=== PATIENT | male | born 1985 | race Caucasian/White ===

== ENCOUNTER 2017-08-10 09:15 | Inpatient (IN) | payer OTHER ==
[2017-08-10 10:56] LABS: ADD MAN DIFF? NO
[2017-08-10 10:58] LABS: WHITE BLOOD COUNT 22.4 10^3/ul (4.8-10.8)
[2017-08-10 10:58] LABS: ABNORMAL IP MESSAGE 1; BASOPHIL # 0.1 10^3/ul (0.0-0.1); BASOPHILS % 0.3 % (0.0-2.0); HEMATOCRIT 49.9 % (42.0-52.0); HEMOGLOBIN 17.1 g/dl (14.0-18.0); LYMPHOCYTES # 2.1 10^3/ul (0.8-2.9); LYMPHOCYTES % 9.2 % (15.0-51.0); MEAN CORPUSCULAR HEMOGLOBIN 27.7 pg (29.0-33.0); MEAN CORPUSCULAR HGB CONC 34.3 g/dl (32.0-37.0); MEAN CORPUSCULAR VOLUME 80.9 fl (82.0-101.0); MONOCYTE # 1.8 10^3/ul (0.3-0.9); MONOCYTES % 8.2 % (0.0-11.0); NEUTROPHIL # 18.3 10^3/ul (1.6-7.5); NEUTROPHILS % 81.8 % (39.0-77.0); PLATELET COUNT 302 10^3/UL (140-415); POSITIVE DIFF @See below; RED BLOOD COUNT 6.17 10^6/ul (4.70-6.10)
[2017-08-10] MEDS: LORAZEPAM 2 MG INJ IV (11:12)
[2017-08-10] MEDS: SOD CHLORIDE 0.9% 1,000 ML IV ×4 (11:12→20:32)
[2017-08-10] MEDS: METHYLPREDNISOLONE 125 MG INJ IV (11:13)
[2017-08-10] MEDS: IPRATROPIUM (NEB) 0.5 MG/2.5 ML AMP INH (11:14)
[2017-08-10] MEDS: ALBUTEROL 0.5% (NEB) 2.5 MG/0.5 ML AMP INH (11:15)
[2017-08-10 11:27] LABS: INR 0.94; PARTIAL THROMBOPLASTIN TIME 20.3 Sec (25.0-35.0); PROTIME 12.7 Sec (11.9-14.9)
[2017-08-10 11:37] LABS: ALANINE AMINOTRANSFERASE 69 IU/L (13-69); ALBUMIN 5.2 g/dl (3.3-4.9); ALBUMIN/GLOBULIN RATIO 1.73; ALKALINE PHOSPHATASE 192 IU/L (42-121); ANION GAP 27 (8-16); ASPARTATE AMINO TRANSFERASE 43 IU/L (15-46); BLOOD UREA NITROGEN 15 mg/dl (7-20); CALCIUM 10.4 mg/dl (8.4-10.2); CARBON DIOXIDE 21 mmol/L (21-31); CHLORIDE 107 mmol/L (97-110); CREATININE 0.79 mg/dl (0.61-1.24); GLUCOSE 240 mg/dl (70-220); POTASSIUM 3.7 mmol/L (3.5-5.1); SODIUM 151 mmol/L (135-144); TOTAL PROTEIN 8.2 g/dl (6.1-8.1)
[2017-08-10 11:41] LABS: LACTIC ACID 8.2 mmol/L (0.5-2.0)
[2017-08-10] MEDS: LEVETIRACETAM 1000 MG (PMX) 100 ML IVPB ×2 (11:54→21:35)
[2017-08-10 12:03] LABS: TROPONIN-I 0.049 ng/ml (0.00-0.12)
[2017-08-10] MEDS: CEFEPIME 2GM/50 ML (PMX) 50 ML IVPB (12:46)
[2017-08-10] MEDS ORDERED: ACETAMINOPHEN 325 MG TAB PO (13:00)
[2017-08-10] MEDS ORDERED: ONDANSETRON 4 MG INJ IV ×2 (13:00→13:30)
[2017-08-10] MEDS: LINEZOLID 600 MG/D5W (PMX) 300 ML IVPB (13:06)
[2017-08-10] MEDS ORDERED: NACL 0.9% 3 ML SYG IV (13:30)
[2017-08-10] MEDS ORDERED: LORAZEPAM 2 MG INJ IV (13:30)
[2017-08-10] MEDS ORDERED: ACETAMINOPHEN 650 MG SUPP PR (13:30)
[2017-08-10] MEDS ORDERED: DOCUSATE SODIUM 100 MG CAP PO (13:30)
[2017-08-10] MEDS ORDERED: MAGNESIUM HYDROXIDE 30ML CUP PO (13:30)
[2017-08-10] MEDS ORDERED: BISACODYL 10 MG SUPP PR (13:30)
[2017-08-10 13:35] LABS: LACTIC ACID 4.5 mmol/L (0.5-2.0)
[2017-08-10 14:52] LABS: ADD UMIC NO; UR ASCORBIC ACID NEGATIVE (NEGATIVE); UR BILIRUBIN (Dip) NEGATIVE (NEGATIVE); UR BLOOD (Dip) NEGATIVE (NEGATIVE); UR CLARITY CLEAR (CLEAR); UR COLOR STRAW (YELLOW); UR GLUCOSE (Dip) 1+ mg/dL (NEGATIVE); UR KETONES (Dip) NEGATIVE (NEGATIVE); UR LEUKOCYTE ESTERASE (Dip) NEGATIVE Leu/ul (NEGATIVE); UR NITRITE (Dip) NEGATIVE (NEGATIVE); UR SPECIFIC GRAVITY (Dip) 1.011 (1.003-1.030); UR TOTAL PROTEIN (Dip) NEGATIVE (NEGATIVE); UR UROBILINOGEN (Dip) NEGATIVE (NEGATIVE)
[2017-08-10] MEDS: SOD CHLORIDE 0.9% 2,110 ML IV (15:00)
[2017-08-10 16:00] LABS: LACTIC ACID 4.3 mmol/L (0.5-2.0)
[2017-08-10] MEDS: AZTREONAM 2 GM in SOD CHLORIDE 0.9% 100 ML IVPB ×2 (16:25→20:31)
[2017-08-10] MEDS: LANSOPRAZOLE 30 MG CAP GTB (20:30)
[2017-08-10] MEDS: ACETAMINOPHEN 325 MG TAB PO (21:27)
[2017-08-10] MEDS: OXCARBAZEPINE SUSP 60 MG/ML (PO SYG) PO (21:35)
[2017-08-11] MEDS: SOD CHLORIDE 0.9% 1,000 ML IV ×3 (04:48→20:54)
[2017-08-11] MEDS: AZTREONAM 2 GM in SOD CHLORIDE 0.9% 100 ML IVPB ×2 (04:48→14:06)
[2017-08-11] MEDS: LEVETIRACETAM 1000 MG (PMX) 100 ML IVPB (08:34)
[2017-08-11] MEDS: OXCARBAZEPINE SUSP 60 MG/ML (PO SYG) PO ×2 (08:36→20:42)
[2017-08-11] MEDS: LANSOPRAZOLE 30 MG CAP GTB ×2 (08:37→20:42)
[2017-08-11 08:48] LABS: ADD MAN DIFF? NO
[2017-08-11 08:54] LABS: BASOPHIL # 0.1 10^3/ul (0.0-0.1); BASOPHILS % 0.5 % (0.0-2.0); EOSINOPHILS % 0.3 % (0.0-7.0); HEMATOCRIT 35.8 % (42.0-52.0); HEMOGLOBIN 12.2 g/dl (14.0-18.0); LYMPHOCYTES # 2.9 10^3/ul (0.8-2.9); LYMPHOCYTES % 28.3 % (15.0-51.0); MEAN CORPUSCULAR HEMOGLOBIN 27.6 pg (29.0-33.0); MEAN CORPUSCULAR HGB CONC 34.1 g/dl (32.0-37.0); MEAN PLATELET VOLUME 11.1 fl (7.4-10.4); MONOCYTE # 1.2 10^3/ul (0.3-0.9); MONOCYTES % 11.4 % (0.0-11.0); NEUTROPHIL # 6.1 10^3/ul (1.6-7.5); NEUTROPHILS % 59.3 % (39.0-77.0); PLATELET COUNT 196 10^3/UL (140-415); RED BLOOD COUNT 4.42 10^6/ul (4.70-6.10); RED CELL DISTRIBUTION WIDTH 14.7 % (11.5-14.5)
[2017-08-11 08:54] LABS: WHITE BLOOD COUNT 10.2 10^3/ul (4.8-10.8)
[2017-08-11 09:11] LABS: ALANINE AMINOTRANSFERASE 98 IU/L (13-69); ALBUMIN 3.2 g/dl (3.3-4.9); ALBUMIN/GLOBULIN RATIO 1.18; ALKALINE PHOSPHATASE 98 IU/L (42-121); ANION GAP 15 (8-16); ASPARTATE AMINO TRANSFERASE 56 IU/L (15-46); BILIRUBIN,INDIRECT 0.1 mg/dl (0-1.1); BILIRUBIN,TOTAL 0.1 mg/dl (0.2-1.3); BLOOD UREA NITROGEN 10 mg/dl (7-20); CALCIUM 8.7 mg/dl (8.4-10.2); CARBON DIOXIDE 24 mmol/L (21-31); CHLORIDE 111 mmol/L (97-110); CHOL/HDL RATIO 2.8 RATIO; CHOLESTEROL 107 mg/dl (100-200); CREATININE 0.51 mg/dl (0.61-1.24); GLUCOSE 115 mg/dl (70-220); HDL CHOLESTEROL 37 mg/dl (28-63); LDL CHOLESTEROL,CALCULATED 55 mg/dl; MAGNESIUM 2.1 mg/dl (1.7-2.5); PHOSPHORUS 2.5 mg/dl (2.5-4.9); POTASSIUM 3.8 mmol/L (3.5-5.1); SODIUM 146 mmol/L (135-144); TOTAL PROTEIN 5.9 g/dl (6.1-8.1); TRIGLYCERIDES 77 mg/dl (0-149)
[2017-08-11 09:26] LABS: FREE THYROXINE INDEX (Calc) 1.73 ug/ml (0.65-3.89); T4 (THYROXINE) 5.3 ug/dl (5.5-11.0)
[2017-08-11 09:36] LABS: T3 UPTAKE 32.6 % (23.5-40.5)
[2017-08-11 09:40] LABS: THYROID STIMULATING HORMONE 0.451 MIU/L (0.465-4.680)
[2017-08-11 10:31] LABS: HEMOGLOBIN A1C 5.5 % (0-5.9)
[2017-08-11] MEDS: ACETAMINOPHEN 325 MG TAB PO (11:32)
[2017-08-11] MEDS: LEVETIRACETAM 1500 MG (PMX) 100 ML IVPB (20:42)
[2017-08-12] MEDS: SOD CHLORIDE 0.9% 1,000 ML IV ×2 (05:21→09:09)
[2017-08-12 07:28] LABS: ADD MAN DIFF? NO
[2017-08-12 07:31] LABS: BASOPHILS % 0.5 % (0.0-2.0); EOSINOPHILS # 0.1 10^3/ul (0.0-0.5); EOSINOPHILS % 1.7 % (0.0-7.0); HEMOGLOBIN 15.6 g/dl (14.0-18.0); LYMPHOCYTES # 3.4 10^3/ul (0.8-2.9); LYMPHOCYTES % 44.3 % (15.0-51.0); MEAN CORPUSCULAR HEMOGLOBIN 27.1 pg (29.0-33.0); MEAN CORPUSCULAR HGB CONC 33.2 g/dl (32.0-37.0); MEAN CORPUSCULAR VOLUME 81.7 fl (82.0-101.0); MONOCYTE # 0.8 10^3/ul (0.3-0.9); MONOCYTES % 10.9 % (0.0-11.0); NEUTROPHIL # 3.3 10^3/ul (1.6-7.5); NEUTROPHILS % 42.3 % (39.0-77.0); PLATELET COUNT 211 10^3/UL (140-415); RED BLOOD COUNT 5.75 10^6/ul (4.70-6.10); RED CELL DISTRIBUTION WIDTH 14.2 % (11.5-14.5)
[2017-08-12 07:31] LABS: WHITE BLOOD COUNT 7.7 10^3/ul (4.8-10.8)
[2017-08-12 07:57] LABS: ANION GAP 18 (8-16); BLOOD UREA NITROGEN 8 mg/dl (7-20); CALCIUM 9.7 mg/dl (8.4-10.2); CARBON DIOXIDE 29 mmol/L (21-31); CHLORIDE 107 mmol/L (97-110); CREATININE 0.49 mg/dl (0.61-1.24); GLUCOSE 88 mg/dl (70-220); POTASSIUM 3.9 mmol/L (3.5-5.1); SODIUM 150 mmol/L (135-144)
[2017-08-12] MEDS: OXCARBAZEPINE SUSP 60 MG/ML (PO SYG) PO ×2 (09:09→21:19)
[2017-08-12] MEDS: LANSOPRAZOLE 30 MG CAP GTB ×2 (09:10→20:48)
[2017-08-12] MEDS: LEVETIRACETAM 1500 MG (PMX) 100 ML IVPB ×2 (09:14→20:48)
[2017-08-12] MEDS: SOD CHLORIDE 0.45% IV (12:13)
[2017-08-12] MEDS: POTASSIUM CHLORIDE IV (12:13)
[2017-08-13] MEDS: SOD CHLORIDE 0.45% IV ×2 (02:47→14:10)
[2017-08-13] MEDS: POTASSIUM CHLORIDE IV ×2 (02:47→14:10)
[2017-08-13 08:17] LABS: ADD MAN DIFF? NO
[2017-08-13 08:25] LABS: BASOPHILS % 0.5 % (0.0-2.0); EOSINOPHILS # 0.2 10^3/ul (0.0-0.5); EOSINOPHILS % 4.3 % (0.0-7.0); HEMATOCRIT 45.5 % (42.0-52.0); HEMOGLOBIN 15.6 g/dl (14.0-18.0); LYMPHOCYTES # 2.2 10^3/ul (0.8-2.9); LYMPHOCYTES % 38.8 % (15.0-51.0); MEAN CORPUSCULAR HGB CONC 34.3 g/dl (32.0-37.0); MEAN CORPUSCULAR VOLUME 81.7 fl (82.0-101.0); MONOCYTE # 0.5 10^3/ul (0.3-0.9); NEUTROPHIL # 2.7 10^3/ul (1.6-7.5); NEUTROPHILS % 47.4 % (39.0-77.0); PLATELET COUNT 207 10^3/UL (140-415); RED BLOOD COUNT 5.57 10^6/ul (4.70-6.10); RED CELL DISTRIBUTION WIDTH 14.1 % (11.5-14.5)
[2017-08-13 08:25] LABS: WHITE BLOOD COUNT 5.6 10^3/ul (4.8-10.8)
[2017-08-13 08:40] LABS: ANION GAP 18 (8-16); BLOOD UREA NITROGEN 9 mg/dl (7-20); CALCIUM 9.9 mg/dl (8.4-10.2); CARBON DIOXIDE 28 mmol/L (21-31); CHLORIDE 107 mmol/L (97-110); CREATININE 0.52 mg/dl (0.61-1.24); GLUCOSE 104 mg/dl (70-220); POTASSIUM 3.8 mmol/L (3.5-5.1); SODIUM 149 mmol/L (135-144)
[2017-08-13] MEDS: LEVETIRACETAM 1500 MG (PMX) 100 ML IVPB ×2 (09:10→20:41)
[2017-08-13] MEDS: OXCARBAZEPINE SUSP 60 MG/ML (PO SYG) PO ×2 (09:11→23:38)
[2017-08-13] MEDS: LANSOPRAZOLE 30 MG CAP GTB ×2 (09:11→20:42)
[2017-08-14] MEDS: POTASSIUM CHLORIDE IV (04:39)
[2017-08-14] MEDS: SOD CHLORIDE 0.45% IV (04:39)
[2017-08-14 07:58] LABS: ADD MAN DIFF? NO
[2017-08-14 08:04] LABS: BASOPHILS % 0.7 % (0.0-2.0); EOSINOPHILS # 0.3 10^3/ul (0.0-0.5); EOSINOPHILS % 4.4 % (0.0-7.0); HEMATOCRIT 47.1 % (42.0-52.0); HEMOGLOBIN 15.9 g/dl (14.0-18.0); LYMPHOCYTES # 2.8 10^3/ul (0.8-2.9); LYMPHOCYTES % 46.1 % (15.0-51.0); MEAN CORPUSCULAR HEMOGLOBIN 27.6 pg (29.0-33.0); MEAN CORPUSCULAR HGB CONC 33.8 g/dl (32.0-37.0); MEAN CORPUSCULAR VOLUME 81.6 fl (82.0-101.0); MEAN PLATELET VOLUME 12.7 fl (7.4-10.4); MONOCYTE # 0.5 10^3/ul (0.3-0.9); NEUTROPHIL # 2.4 10^3/ul (1.6-7.5); NEUTROPHILS % 40.6 % (39.0-77.0); POSITIVE DIFF @See below; RED BLOOD COUNT 5.77 10^6/ul (4.70-6.10); RED CELL DISTRIBUTION WIDTH 13.9 % (11.5-14.5)
[2017-08-14 08:10] LABS: PLATELET COUNT 155 10^3/UL (140-415)
[2017-08-14 08:27] LABS: ANION GAP 18 (8-16); BLOOD UREA NITROGEN 9 mg/dl (7-20); CALCIUM 9.9 mg/dl (8.4-10.2); CARBON DIOXIDE 25 mmol/L (21-31); CHLORIDE 108 mmol/L (97-110); CREATININE 0.47 mg/dl (0.61-1.24); GLUCOSE 116 mg/dl (70-220); POTASSIUM 3.8 mmol/L (3.5-5.1); SODIUM 147 mmol/L (135-144)
[2017-08-14] MEDS: LEVETIRACETAM 1500 MG (PMX) 100 ML IVPB (09:15)
[2017-08-14] MEDS: OXCARBAZEPINE SUSP 60 MG/ML (PO SYG) PO (09:16)
[2017-08-14] MEDS: LANSOPRAZOLE 30 MG CAP GTB (09:16)
== END 2017-08-14 17:10 | disposition home or self-care (01) | DRG 871 ==
LOC: E/R 09:15 → MS4 12:42
PROVIDERS: Internal Medicine
DX: A41.9 Sepsis, unspecified organism (principal); G93.49 Other encephalopathy; E87.2 Acidosis; G40.919 Epilepsy, unspecified, intractable, without status epilepticus; R13.10 Dysphagia, unspecified; G80.0 Spastic quadriplegic cerebral palsy; E87.0 Hyperosmolality and hypernatremia; Z93.1 Gastrostomy status; Z98.2 Presence of cerebrospinal fluid drainage device
CPT/HCPCS: 70450; 71045; 80048; 80053; 80061; 81003; 82962; 83036; 83605; 83735; 84100; 84436; 84443; 84479; 84484; 85025; 85610; 85730; 87040; 87086; 87400; 93005; 94644; 96374; 96375; 99291-25

== ENCOUNTER 2017-11-17 11:20 | Emergency (ER) | payer OTHER ==
[2017-11-17 14:27] LABS: ADD UMIC YES; UR AMORPHOUS CRYSTAL FEW /HPF (NONE SEEN); UR ASCORBIC ACID 40 mg/dL (NEGATIVE); UR BACTERIA FEW /HPF (NONE SEEN); UR BILIRUBIN (Dip) NEGATIVE (NEGATIVE); UR BLOOD (Dip) NEGATIVE (NEGATIVE); UR CLARITY CLOUDY (CLEAR); UR COLOR YELLOW (YELLOW); UR GLUCOSE (Dip) NEGATIVE (NEGATIVE); UR KETONES (Dip) NEGATIVE (NEGATIVE); UR LEUKOCYTE ESTERASE (Dip) NEGATIVE Leu/ul (NEGATIVE); UR NITRITE (Dip) NEGATIVE (NEGATIVE); UR RBC 1 /HPF (0-5); UR SPECIFIC GRAVITY (Dip) 1.017 (1.003-1.030); UR TOTAL PROTEIN (Dip) NEGATIVE (NEGATIVE); UR UROBILINOGEN (Dip) NEGATIVE (NEGATIVE); UR WBC 2 /HPF (0-5)
== END 2017-11-17 15:45 | disposition home or self-care (01) ==
LOC: E/R 11:20
DX: J40 Bronchitis, not specified as acute or chronic (principal); R40.2122 Coma scale, eyes open, to pain, at arrival to emergency department; R40.2212 Coma scale, best verbal response, none, at arrival to emergency department; R40.2352 Coma scale, best motor response, localizes pain, at arrival to emergency department
CPT/HCPCS: 71045; 81001; 99284-25

== ENCOUNTER 2018-07-30 07:45 | Day surgery (SDC) | payer OTHER | END 2018-07-30 14:42 | disposition home or self-care (01) | LOC: GIL 07:45 | DX: K94.23 Gastrostomy malfunction (principal); Y84.8 Other medical procedures as the cause of abnormal reaction of the patient, or of later complication, without mention of misadventure at the time of the procedure; Y82.8 Other medical devices associated with adverse incidents | CPT/HCPCS: 43762 ==

== ENCOUNTER 2018-09-27 16:44 | Emergency (ER) | payer OTHER | END 2018-09-27 21:25 | disposition home or self-care (01) | LOC: E/R 16:44 | DX: Z43.1 Encounter for attention to gastrostomy (principal) | CPT/HCPCS: 49440; 74018; 99284-25 ==

== ENCOUNTER 2019-02-20 15:16 | Inpatient (IN) | payer OTHER ==
[2019-02-20] MEDS: SODIUM CHLORIDE 0.9% 1L BAG IV* (15:37)
[2019-02-20] MEDS: LEVETIRACETAM 500 MG (PMX) 100 ML IVPB (15:45)
[2019-02-20] MEDS ORDERED: LORAZEPAM 2 MG INJ (15:46)
[2019-02-20] MEDS: IBUPROFEN 600 MG TAB PO (15:49)
[2019-02-20] MEDS: LORAZEPAM 2 MG INJ IV ×2 (15:53→19:24)
[2019-02-20 16:01] LABS: WHITE BLOOD COUNT 16.6 10^3/ul (4.8-10.8)
[2019-02-20 16:01] LABS: ABNORMAL IP MESSAGE 1; HEMATOCRIT 49.1 % (42.0-52.0); HEMOGLOBIN 16.7 g/dl (14.0-18.0); MEAN CORPUSCULAR HEMOGLOBIN 29.7 pg (29.0-33.0); MEAN CORPUSCULAR VOLUME 87.4 fl (82.0-101.0); MEAN PLATELET VOLUME 10.4 fl (7.4-10.4); PLATELET COUNT 312 10^3/UL (140-415); POSITIVE DIFF @See below; RED BLOOD COUNT 5.62 10^6/ul (4.70-6.10); RED CELL DISTRIBUTION WIDTH 12.3 % (11.5-14.5)
[2019-02-20] MEDS: CEFTRIAXONE 1 GM/50 ML (PMX) 50 ML IVPB (16:01)
[2019-02-20 16:05] LABS: ADD MAN DIFF? YES
[2019-02-20 16:19] LABS: ALANINE AMINOTRANSFERASE 80 IU/L (13-69); ALBUMIN 5.3 g/dl (3.3-4.9); ALBUMIN/GLOBULIN RATIO 1.35; ALKALINE PHOSPHATASE 170 IU/L (42-121); ANION GAP 18 (5-13); ASPARTATE AMINO TRANSFERASE 82 IU/L (15-46); BILIRUBIN,INDIRECT 0.2 mg/dl (0-1.1); BILIRUBIN,TOTAL 0.2 mg/dl (0.2-1.3); BLOOD UREA NITROGEN 13 mg/dl (7-20); CALCIUM 10.6 mg/dl (8.4-10.2); CARBON DIOXIDE 25 mmol/L (21-31); CHLORIDE 100 mmol/L (97-110); CREATININE 0.66 mg/dl (0.61-1.24); Estimated GFR > 60 mL/min (>60); GLUCOSE 142 mg/dl (70-220); LIPASE 76 U/L (23-300); POTASSIUM 3.9 mmol/L (3.5-5.1); SODIUM 143 mmol/L (135-144); TOTAL PROTEIN 9.2 g/dl (6.1-8.1)
[2019-02-20 16:21] LABS: INR 0.99; PROTIME 13.2 Sec (11.9-14.9)
[2019-02-20 16:30] LABS: TROPONIN-I 0.026 ng/ml (0.000-0.120)
[2019-02-20] MEDS: AZITHROMYCIN 500MG/NS (PMX) 250 ML IVPB (16:31)
[2019-02-20] MEDS ORDERED: ALBUTEROL 0.5% (NEB) 2.5 MG/0.5 ML AMP INH (16:39)
[2019-02-20 16:42] LABS: ANISOCYTOSIS 1+ (0-0); BAND NEUTROPHILS #M 0.8 10^3/ul (0.0-0.6); BAND NEUTROPHILS % (M) 5 % (0-4); LYMPHOCYTES #M 0.3 10^3/ul (0.8-2.9); LYMPHOCYTES % (M) 2 % (15-51); MICROCYTOSIS 1+ (0-0); MONOCYTE #M 0.4 10^3/ul (0.3-0.9); MONOCYTES % (M) 3 % (0-11); MYELOCYTES #M 0.1 10^3/ul (0.0-0.0); MYELOCYTES % (M) 1 % (0-0); PLATELET ESTIMATE NORMAL; SEG NEUT #M 14.9 10^3/ul (1.6-7.5); SEGMENTED NEUTROPHILS (M) % 89 % (39-77)
[2019-02-20 16:49] LABS: ADD UMIC NO; UR ASCORBIC ACID NEGATIVE (NEGATIVE); UR BILIRUBIN (Dip) NEGATIVE (NEGATIVE); UR BLOOD (Dip) NEGATIVE (NEGATIVE); UR CLARITY CLEAR (CLEAR); UR COLOR STRAW (YELLOW); UR GLUCOSE (Dip) NEGATIVE (NEGATIVE); UR KETONES (Dip) NEGATIVE (NEGATIVE); UR LEUKOCYTE ESTERASE (Dip) NEGATIVE Leu/ul (NEGATIVE); UR NITRITE (Dip) NEGATIVE (NEGATIVE); UR SPECIFIC GRAVITY (Dip) 1.008 (1.003-1.030); UR TOTAL PROTEIN (Dip) NEGATIVE (NEGATIVE); UR UROBILINOGEN (Dip) NEGATIVE (NEGATIVE)
[2019-02-20] MEDS: DIPHENHYDRAMINE 50 MG INJ IV (17:06)
[2019-02-20] MEDS: IPRATROPIUM (NEB) 0.5 MG/2.5 ML AMP HHN (17:17)
[2019-02-20] MEDS: LEVALBUTEROL (NEB) 1.25 MG/0.5 ML AMP HHN (17:17)
[2019-02-20] MEDS ORDERED: ONDANSETRON 4 MG INJ IV (17:30)
[2019-02-20] MEDS ORDERED: NACL 0.9% 3 ML SYG IV (17:30)
[2019-02-20] MEDS: LEVOFLOXACIN 500MG/D5W (PMX) 100 ML IVPB (17:42)
[2019-02-20] MEDS: SOD CHLORIDE 0.9% 1,000 ML IV (17:43)
[2019-02-20] MEDS ORDERED: LEVALBUTEROL (NEB) 0.63 MG/3 ML AMP HHN (18:30)
[2019-02-20] MEDS: ACETAMINOPHEN 650 MG SUPP PR ×2 (19:27→21:39)
[2019-02-20] MEDS ORDERED: IBUPROFEN LIQUID (PED) 20 MG/ML CUP PO (20:35)
[2019-02-20] MEDS: IBUPROFEN 200 MG TAB PO (21:28)
[2019-02-20 21:57] LABS: LACTIC ACID 2.5 mmol/L (0.5-2.0)
[2019-02-20] MEDS: LEVETIRACETAM (100 MG/ML) 5ML CUP GTB (22:48)
[2019-02-20] MEDS: OXCARBAZEPINE 300 MG TAB GTB (22:48)
[2019-02-20] MEDS: AZTREONAM 2 GM in SOD CHLORIDE 0.9% 100 ML IVPB (22:49)
[2019-02-20] MEDS: RANITIDINE (15 MG/ML) 10ML CUP NGT (23:33)
[2019-02-21] MEDS: ACETAMINOPHEN 650MG/20.3ML CUP GTB (02:46)
[2019-02-21] MEDS: SOD CHLORIDE 0.9% 1,000 ML IV ×5 (04:28→23:47)
[2019-02-21] MEDS: AZTREONAM 2 GM in SOD CHLORIDE 0.9% 100 ML IVPB ×3 (05:41→22:23)
[2019-02-21 06:08] LABS: ADD MAN DIFF? NO
[2019-02-21 06:12] LABS: WHITE BLOOD COUNT 8.7 10^3/ul (4.8-10.8)
[2019-02-21 06:12] LABS: BASOPHILS % 0.3 % (0.0-2.0); HEMATOCRIT 34.9 % (42.0-52.0); HEMOGLOBIN 11.9 g/dl (14.0-18.0); LYMPHOCYTES # 1.9 10^3/ul (0.8-2.9); LYMPHOCYTES % 21.2 % (15.0-51.0); MEAN CORPUSCULAR HEMOGLOBIN 29.7 pg (29.0-33.0); MEAN CORPUSCULAR HGB CONC 34.1 g/dl (32.0-37.0); MEAN PLATELET VOLUME 10.1 fl (7.4-10.4); MONOCYTE # 1.4 10^3/ul (0.3-0.9); NEUTROPHIL # 5.4 10^3/ul (1.6-7.5); NEUTROPHILS % 62.3 % (39.0-77.0); PLATELET COUNT 208 10^3/UL (140-415); RED BLOOD COUNT 4.01 10^6/ul (4.70-6.10); RED CELL DISTRIBUTION WIDTH 12.5 % (11.5-14.5)
[2019-02-21 06:41] LABS: ALANINE AMINOTRANSFERASE 74 IU/L (13-69); ALBUMIN 3.5 g/dl (3.3-4.9); ALBUMIN/GLOBULIN RATIO 1.29; ALKALINE PHOSPHATASE 101 IU/L (42-121); ANION GAP 7 (5-13); ASPARTATE AMINO TRANSFERASE 56 IU/L (15-46); BILIRUBIN,INDIRECT 0.5 mg/dl (0-1.1); BILIRUBIN,TOTAL 0.5 mg/dl (0.2-1.3); BLOOD UREA NITROGEN 7 mg/dl (7-20); CALCIUM 8.2 mg/dl (8.4-10.2); CARBON DIOXIDE 22 mmol/L (21-31); CHLORIDE 110 mmol/L (97-110); Estimated GFR > 60 mL/min (>60); GLUCOSE 121 mg/dl (70-220); POTASSIUM 3.3 mmol/L (3.5-5.1); SODIUM 139 mmol/L (135-144); TOTAL PROTEIN 6.2 g/dl (6.1-8.1)
[2019-02-21] MEDS: IBUPROFEN 600 MG TAB GTB (07:00)
[2019-02-21] MEDS: RANITIDINE (15 MG/ML) 10ML CUP NGT ×2 (09:01→20:03)
[2019-02-21] MEDS: LEVETIRACETAM (100 MG/ML) 5ML CUP GTB ×2 (09:01→20:03)
[2019-02-21] MEDS: OXCARBAZEPINE 300 MG TAB GTB ×2 (09:01→20:03)
[2019-02-21] MEDS: ENOXAPARIN 40 MG/0.4 ML SYG SC (10:00)
[2019-02-21] MEDS ORDERED: POTASSIUM CHLORIDE (1.33 MEQ/ML PO SYG) PEG (10:30)
[2019-02-21] MEDS ORDERED: POTASSIUM CHLORIDE 20 MEQ POWDER FOR ORAL SOLN GTB (11:00)
[2019-02-21] MEDS: POTASSIUM CHLORIDE 20 MEQ POWDER FOR ORAL SOLN PEG (12:12)
[2019-02-21] MEDS: LEVOFLOXACIN 500MG/D5W (PMX) 100 ML IVPB (17:09)
[2019-02-21] MEDS: LORAZEPAM 2 MG INJ IV (19:02)
[2019-02-22] MEDS: AZTREONAM 2 GM in SOD CHLORIDE 0.9% 100 ML IVPB ×3 (06:15→21:45)
[2019-02-22 08:28] LABS: ADD MAN DIFF? NO
[2019-02-22 08:45] LABS: BASOPHIL # 0.1 10^3/ul (0.0-0.1); BASOPHILS % 0.8 % (0.0-2.0); EOSINOPHILS % 0.5 % (0.0-7.0); HEMOGLOBIN 13.5 g/dl (14.0-18.0); LYMPHOCYTES # 3.3 10^3/ul (0.8-2.9); LYMPHOCYTES % 44.7 % (15.0-51.0); MEAN CORPUSCULAR HEMOGLOBIN 29.7 pg (29.0-33.0); MEAN CORPUSCULAR HGB CONC 33.8 g/dl (32.0-37.0); MEAN CORPUSCULAR VOLUME 88.1 fl (82.0-101.0); MEAN PLATELET VOLUME 11.2 fl (7.4-10.4); MONOCYTE # 0.9 10^3/ul (0.3-0.9); MONOCYTES % 12.2 % (0.0-11.0); NEUTROPHIL # 3.1 10^3/ul (1.6-7.5); NEUTROPHILS % 41.7 % (39.0-77.0); PLATELET COUNT 193 10^3/UL (140-415); RED BLOOD COUNT 4.54 10^6/ul (4.70-6.10); RED CELL DISTRIBUTION WIDTH 12.7 % (11.5-14.5)
[2019-02-22 08:45] LABS: WHITE BLOOD COUNT 7.4 10^3/ul (4.8-10.8)
[2019-02-22 09:04] LABS: ANION GAP 11 (5-13); BLOOD UREA NITROGEN 6 mg/dl (7-20); CALCIUM 9.7 mg/dl (8.4-10.2); CARBON DIOXIDE 29 mmol/L (21-31); CHLORIDE 103 mmol/L (97-110); CREATININE 0.43 mg/dl (0.61-1.24); Estimated GFR > 60 mL/min (>60); GLUCOSE 106 mg/dl (70-220); POTASSIUM 3.5 mmol/L (3.5-5.1); SODIUM 143 mmol/L (135-144)
[2019-02-22] MEDS: RANITIDINE (15 MG/ML) 10ML CUP NGT ×2 (09:16→20:16)
[2019-02-22] MEDS: LEVETIRACETAM (100 MG/ML) 5ML CUP GTB ×2 (09:16→20:16)
[2019-02-22] MEDS: OXCARBAZEPINE 300 MG TAB GTB ×2 (09:16→20:16)
[2019-02-22] MEDS: ENOXAPARIN 40 MG/0.4 ML SYG SC (09:54)
[2019-02-22] MEDS: SOD CHLORIDE 0.9% 1,000 ML IV ×2 (10:03→21:45)
[2019-02-22] MEDS: LEVOFLOXACIN 500MG/D5W (PMX) 100 ML IVPB (16:35)
[2019-02-23] MEDS: AZTREONAM 2 GM in SOD CHLORIDE 0.9% 100 ML IVPB (06:07)
[2019-02-23] MEDS: SOD CHLORIDE 0.9% 1,000 ML IV (06:09)
[2019-02-23 06:50] LABS: ADD MAN DIFF? NO
[2019-02-23 06:56] LABS: WHITE BLOOD COUNT 6.7 10^3/ul (4.8-10.8)
[2019-02-23 06:56] LABS: BASOPHILS % 0.6 % (0.0-2.0); EOSINOPHILS # 0.1 10^3/ul (0.0-0.5); EOSINOPHILS % 0.8 % (0.0-7.0); HEMATOCRIT 37.5 % (42.0-52.0); LYMPHOCYTES # 2.3 10^3/ul (0.8-2.9); LYMPHOCYTES % 34.1 % (15.0-51.0); MEAN CORPUSCULAR HEMOGLOBIN 29.9 pg (29.0-33.0); MEAN CORPUSCULAR HGB CONC 34.7 g/dl (32.0-37.0); MEAN CORPUSCULAR VOLUME 86.2 fl (82.0-101.0); MEAN PLATELET VOLUME 10.8 fl (7.4-10.4); MONOCYTE # 0.7 10^3/ul (0.3-0.9); MONOCYTES % 10.1 % (0.0-11.0); NEUTROPHIL # 3.6 10^3/ul (1.6-7.5); NEUTROPHILS % 54.2 % (39.0-77.0); PLATELET COUNT 208 10^3/UL (140-415); RED BLOOD COUNT 4.35 10^6/ul (4.70-6.10); RED CELL DISTRIBUTION WIDTH 12.2 % (11.5-14.5)
[2019-02-23 07:25] LABS: ANION GAP 7 (5-13); BLOOD UREA NITROGEN 8 mg/dl (7-20); CALCIUM 9.3 mg/dl (8.4-10.2); CARBON DIOXIDE 28 mmol/L (21-31); CHLORIDE 105 mmol/L (97-110); CREATININE 0.38 mg/dl (0.61-1.24); Estimated GFR > 60 mL/min (>60); GLUCOSE 152 mg/dl (70-220); POTASSIUM 3.2 mmol/L (3.5-5.1); SODIUM 140 mmol/L (135-144)
[2019-02-23] MEDS: OXCARBAZEPINE 300 MG TAB GTB (08:50)
[2019-02-23] MEDS: RANITIDINE (15 MG/ML) 10ML CUP NGT (08:50)
[2019-02-23] MEDS: LEVETIRACETAM (100 MG/ML) 5ML CUP GTB ×2 (08:50→21:53)
[2019-02-23] MEDS: ENOXAPARIN 40 MG/0.4 ML SYG SC (09:19)
[2019-02-23] MEDS: POTASSIUM CHLORIDE 20 MEQ POWDER FOR ORAL SOLN NGT (14:56)
[2019-02-23] MEDS: RANITIDINE (15 MG/ML) 10ML CUP GTB (21:53)
[2019-02-23] MEDS: OXCARBAZEPINE SUSP 60 MG/ML (PO SYG) GTB (21:53)
[2019-02-24] MEDS: LEVOFLOXACIN 500 MG TAB GTB (06:22)
[2019-02-24 06:48] LABS: ANION GAP 8 (5-13); BLOOD UREA NITROGEN 11 mg/dl (7-20); CALCIUM 10.2 mg/dl (8.4-10.2); CARBON DIOXIDE 28 mmol/L (21-31); CHLORIDE 105 mmol/L (97-110); CREATININE 0.38 mg/dl (0.61-1.24); Estimated GFR > 60 mL/min (>60); GLUCOSE 127 mg/dl (70-220); POTASSIUM 3.5 mmol/L (3.5-5.1); SODIUM 141 mmol/L (135-144)
[2019-02-24] MEDS: RANITIDINE (15 MG/ML) 10ML CUP GTB (08:42)
[2019-02-24] MEDS: LEVETIRACETAM (100 MG/ML) 5ML CUP GTB (08:42)
[2019-02-24] MEDS: ENOXAPARIN 40 MG/0.4 ML SYG SC (08:43)
[2019-02-24] MEDS: OXCARBAZEPINE SUSP 60 MG/ML (PO SYG) GTB (09:23)
== END 2019-02-24 19:38 | disposition home or self-care (01) | DRG 871 ==
LOC: PP2 02-23 15:15 → E/R 15:16 → TEL 16:42
PROVIDERS: Internal Medicine
DX: A41.9 Sepsis, unspecified organism (principal); J69.0 Pneumonitis due to inhalation of food and vomit; E87.2 Acidosis; Q05.4 Unspecified spina bifida with hydrocephalus; E87.6 Hypokalemia; R13.10 Dysphagia, unspecified; Z93.1 Gastrostomy status; G40.909 Epilepsy, unspecified, not intractable, without status epilepticus; G80.8 Other cerebral palsy; H91.3 Deaf nonspeaking, not elsewhere classified; E86.0 Dehydration; R74.0 Nonspecific elevation of levels of transaminase and lactic acid dehydrogenase [LDH]; H54.7 Unspecified visual loss; Z98.2 Presence of cerebrospinal fluid drainage device; Z74.01 Bed confinement status; Z88.0 Allergy status to penicillin
CPT/HCPCS: 36415; 70450; 71045; 80048; 80053; 81003; 83605; 83690; 83735; 84145; 84484; 85025; 85610; 85730; 87040-91; 87086; 87400; 93005; 94644; 96365; 96375; 97161; 97165; 99285-25